=== PATIENT | male | born 1970 | race Caucasian/White ===

== ENCOUNTER 2020-04-13 13:07 | Emergency (ER) | payer OTHER, SELFPAY ==
[2020-04-13] VITALS (19 sets, daily range): BP systolic 104–120; BP diastolic 61–76; PULSE 59–79; RESP 15–24; TEMP 36.7; O2SAT 93–100
--- NOTE | 2020-04-13 13:14 | DI.RAD.S_ITS ---
PROCEDURE: XR CHEST 1V INDICATIONS: chest pain TECHNIQUE: One view of the chest was acquired. COMPARISON: None. FINDINGS: Surgical changes and devices: Left-sided pacer. Lungs and pleura: Lungs are clear. No pleural effusions or pneumothorax. Mediastinum: Mediastinal contours appear normal. Heart size is normal. Bones and chest wall: No suspicious bony lesions. Overlying soft tissues appear unremarkable. IMPRESSION: No acute process. Dictated by: Analilia Temple M.D. on 04/13/2020 at 13:32 Approved by: Analilia Temple M.D. on 04/13/2020 at 13:34
[2020-04-13 13:28] LABS: Add Manual Diff / Slide Review NO; Basophils Absolute Auto 0 /uL (0-100); Basophils Percent Auto 0.4 % (0-2); Eosinophils Absolute Auto 0 /uL (0-450); Eosinophils Percent Auto 0.4 % (2-4); Hematocrit 46.8 % (41-53); Lymphocytes Absolute Auto 1500 /uL (1100-4500); Lymphocytes Percent Auto 26.9 % (25-40); Mean Corpuscular HGB Conc 34.1 % (30-36); Mean Corpuscular Hemoglobin 31.2 PG (26-34); Mean Corpuscular Volume 91.7 fL (80-100); Monocytes Absolute Auto 400 /uL (0-900); Monocytes Percent Auto 6.5 % (3-14); Neutrophils Absolute Auto 3700 /uL (1500-7000); Neutrophils Percent Auto 65.8 % (50-75); Platelet Count 204 X10^3/uL (150-400); Red Blood Cell Count 5.11 X10^6/uL (4.5-5.9); Red Cell Distribution Width 12.9 % (11.6-14.8); White Blood Cell Count 5.6 X10^3/uL (4.5-11.0)
[2020-04-13 13:34] LABS: Prothrombin Time 11.7 SECONDS (10.1-12.7)
[2020-04-13 13:36] LABS: PTT Partial Thromboplastin Tim 29 SECONDS (26.4-36.2)
[2020-04-13 13:38] LABS: Alanine Aminotransferase 52 IU/L (<50); Albumin Globulin Ratio 1.4 (1.0-2.8); Alkaline Phosphatase 53 U/L (38-126); Aspartate Aminotransferase 38 IU/L (17-59); BUN Creatinine Ratio 20.9 (6-22); Bilirubin Total 0.6 mg/dL (0.2-1.3); Blood Urea Nitrogen 18 mg/dL (9-20); Calcium 9.6 mg/dL (8.4-10.2); Carbon Dioxide 28 mmol/L (22-32); Chloride 105 mmol/L (98-107); Creatine Kinase 157 U/L (55-170); Estimated Glomerular Filt Rate > 60.0 mL/min (>60); Globulin 3.5 g/dL (1.7-4.1); Glucose 103 mg/dL (70-100); HEMOLYSIS < 15 (0-50); Lipase 159 U/L (23-300); Sodium 141 mmol/L (137-145); Total Protein 8.5 g/dL (6.3-8.2)
--- NOTE | 2020-04-13 13:38 | ED.CHESTPAIN ---
HPI - Chest Pain General Chief Complaint: Chest Pain Stated Complaint: heart issues Time Seen by Provider: 04/13/20 13:10 Source: patient Mode of arrival: Ambulatory Limitations: no limitations History of Present Illness HPI narrative: 49M nonsmoker with history of persistent atrial flutter with pacemaker and previous ablation, bipolar 1 presents with his and a chief complaint episodes of chest pain rather persistent for the past 3-4 days. He denies much in the way of provocation or palliation. He has had some dizziness and complains of some episodes of palpitations. He denies any radiation of his symptoms. He states the pain is pressure-like. He denies any recent injury. He denies any change with exertion. He has no nausea, vomiting or diarrhea. He denies any unexplained diaphoresis. He had a heart catheterization in December which was unremarkable. MD complaint: chest pain Onset (ago): day(s) Related Data Previous Rx's Medication Instructions Recorded lorazepam [Ativan] 0.5 mg PO BIDP PRN #60 tab 03/14/16 isosorbide mononitrate 30 mg PO DAILY #30 tab 04/13/20 Allergies Allergy/AdvReac Type Severity Reaction Status Date / Time lamotrigine Allergy Intermediate HIVES Verified 04/13/20 13:23 Review of Systems Constitutional Constitutional: Denies chills, Denies fatigue, Denies fever(s), Denies frequent falls, Denies lethargy and Denies weakness Eyes Eyes: Denies change in vision, Denies eye discharge, Denies irritation and Denies loss of vision ENT Ears, Nose, Mouth, and Throat: Denies change in voice, Denies dizziness, Denies neck pain, Denies sore throat and Denies throat swelling Cardiovascular Cardiovascular: Reports chest pain, Denies irregular heart rhythm, Reports lightheadedness, Reports palpitations, Denies dyspnea, Denies dyspnea on exertion and Denies orthopnea Respiratory Respiratory: Denies cough, Denies dyspnea, Denies dyspnea on exertion and Denies wheezing Gastrointestinal Gastrointestinal: Denies abdominal pain, Denies change in bowel habits, Denies diarrhea, Denies nausea and Denies vomiting Musculoskeletal Musculoskeletal: Denies neck pain and Denies numbness Integumentary/Breasts Skin/Breast: Denies pruritus, Denies erythema, Denies rash and Denies wounds Neurologic Neurologic: Denies behavioral changes, Denies confusion, Denies dizziness, Denies frequent falls, Denies loss of vision, Denies numbness and Denies weakness Psychiatric Psychiatric: Denies anxiety, Denies behavioral changes, Denies confusion, Denies depression, Denies homicidal ideation and Denies suicidal ideation Endocrine Endocrine: Denies fatigue, Denies flushing and Reports palpitations Hematologic/Lymphatic Hematologic/Lymphatic: Denies easy bruising Allergic/Immunologic Allergic/Immunologic: Denies urticaria, Denies throat swelling and Denies wheezing Patient History Social History Smoking Status: Never smoker Smoking Status: Never smoker alcohol intake frequency: 0-2 drinks per day Substance Use Type: does not use Exam Narrative Exam Narrative: GENERAL: [49] year old patient appears stated age. Well-nourished, well-developed patient, in mild distress. HEAD: Atraumatic. Normocephalic. EYES: Pupils equal round and reactive. Extraocular motions intact. No scleral icterus. No injection or drainage. ENT: Nose without bleeding, purulent drainage. Throat without erythema, tonsillar hypertrophy or exudate. Airway patent. NECK: Trachea midline. Non tender CARDIOVASCULAR: Regular rate and rhythm without murmurs, gallops, or rubs. RESPIRATORY: Clear to auscultation. Breath sounds equal bilaterally. No wheezes, rales, or rhonchi. GASTROINTESTINAL: Abdomen soft, non-tender, nondistended. EXTREMITIES: No edema or joint tenderness. BACK: Nontender without deformity or crepitance. No flank tenderness. NEURO: AOx3. SKIN: No rash or erythema of visible areas Initial Vital Signs Initial Vital Signs: Vital Signs Temperature 98.1 F 04/13/20 13:10 Pulse Rate 60 04/13/20 13:10 Respiratory Rate 20 04/13/20 13:10 Blood Pressure 120/76 04/13/20 13:10 Pulse Oximetry 100 04/13/20 13:10 Course Orders Ordered: Discontinued Medications Acetaminophen (Tylenol) 975 mg PO NOW ONE Stop: 04/13/20 13:48 Last Admin: 04/13/20 13:53 Dose: 975 mg Documented by: IVÁN Nitroglycerin (Nitrostat) 0.4 mg SL [id number] PRN PRN Reason: Chest Pain Last Admin: 04/13/20 13:42 Dose: 0.4 mg Documented by: IVÁN Reevaluation(s) Reevaluation #1: no change after NG. Currently interrogating pacer. Time: 13:48 Reevaluation #2: patient continues to do well. Asymptomatic Vital Signs Vital signs: Vital Signs - 8 hr 04/13/20 13:10 04/13/20 13:26 04/13/20 13:30 Temperature 98.1 F Pulse Rate 60 60 60 Respiratory Rate 20 23 22 Blood Pressure 120/76 114/73 Pulse Oximetry 100 95 95 04/13/20 13:41 04/13/20 13:42 04/13/20 13:45 Temperature Pulse Rate 60 60 Respiratory Rate 20 20 Blood Pressure 114/74 114/74 104/61 Pulse Oximetry 96 93 04/13/20 13:55 04/13/20 14:00 04/13/20 14:15 Temperature Pulse Rate 60 60 60 Respiratory Rate 22 24 21 Blood Pressure 104/61 108/67 110/74 Pulse Oximetry 99 96 96 04/13/20 14:30 04/13/20 14:50 04/13/20 15:00 Temperature Pulse Rate 60 79 60 Respiratory Rate 17 24 Blood Pressure 110/74 Pulse Oximetry 96 93 95 04/13/20 15:15 04/13/20 15:30 04/13/20 15:45 Temperature Pulse Rate 60 60 60 Respiratory Rate 15 15 20 Blood Pressure Pulse Oximetry 94 94 96 04/13/20 16:00 04/13/20 16:15 04/13/20 16:30 Temperature Pulse Rate 60 59 L 59 L Respiratory Rate 22 19 20 Blood Pressure Pulse Oximetry 95 93 95 04/13/20 16:45 Temperature Pulse Rate 59 L Respiratory Rate 16 Blood Pressure 116/65 Pulse Oximetry 95 MDM - Chest Pain Lab Data Result diagrams: 04/13/20 13:20 04/13/20 13:20 Labs: Lab Results 04/13/20 04/13/20 04/13/20 Range/Units 13:20 13:20 13:20 WBC 5.6 (4.5-11.0) X10^3/uL RBC 5.11 (4.5-5.9) X10^6/uL Hgb 16.0 (13.5-17.5) g/dL Hct 46.8 (41-53) % MCV 91.7 (80-100) fL MCH 31.2 (26-34) PG MCHC 34.1 (30-36) % RDW 12.9 (11.6-14.8) % Plt Count 204 (150-400) X10^3/uL Neut % (Auto) 65.8 (50-75) % Lymph % (Auto) 26.9 (25-40) % Lasalle % (Auto) 6.5 (3-14) % Eos % (Auto) 0.4 L (2-4) % Baso % (Auto) 0.4 (0-2) % Neut # (Auto) 3700 (5904-9388) /uL Lymph # (Auto) 1500 (1172-9911) /uL Lasalle # (Auto) 400 (0-900) /uL Eos # (Auto) 0 (0-450) /uL Baso # (Auto) 0 (0-100) /uL PT 11.7 (10.1-12.7) SECONDS INR 1.0 (0.9-1.3) APTT 29 (26.4-36.2) SECONDS D-Dimer (<230) ng/mL Sodium 141 (137-145) mmol/L Potassium 4.0 (3.4-5.1) mmol/L Chloride 105 (98-107) mmol/L Carbon Dioxide 28 (22-32) mmol/L BUN 18 (9-20) mg/dL Creatinine 0.86 (0.66-1.25) mg/dL Estimated GFR > 60.0 (>60) mL/min BUN/Creatinine Ratio 20.9 (6-22) Glucose 103 H (70-100) mg/dL Calcium 9.6 (8.4-10.2) mg/dL Magnesium 2.0 (1.6-2.3) mg/dL Total Bilirubin 0.6 (0.2-1.3) mg/dL AST 38 (17-59) IU/L ALT 52 H (<50) IU/L Alkaline Phosphatase 53 (38-126) U/L Total Creatine Kinase 157 (55-170) U/L CK-MB (CK-2) 1.09 (<2.37) ng/mL CK-MB (CK-2) Rel Index 0.7 L (1.5-5.0) % Troponin I < 0.012 (0.01-0.034) ng/mL Total Protein 8.5 H (6.3-8.2) g/dL Albumin 5.0 (3.5-5.0) g/dL Globulin 3.5 (1.7-4.1) g/dL Albumin/Globulin Ratio 1.4 (1.0-2.8) Lipase 159 (23-300) U/L // Range/Units 13:49 WBC (4.5-11.0) X10^3/uL RBC (4.5-5.9) X10^6/uL Hgb (13.5-17.5) g/dL Hct (41-53) % MCV (80-100) fL MCH (26-34) PG MCHC (30-36) % RDW (11.6-14.8) % Plt Count (150-400) X10^3/uL Neut % (Auto) (50-75) % Lymph % (Auto) (25-40) % Lasalle % (Auto) (3-14) % Eos % (Auto) (2-4) % Baso % (Auto) (0-2) % Neut # (Auto) (0153-8242) /uL Lymph # (Auto) (6491-5967) /uL Lasalle # (Auto) (0-900) /uL Eos # (Auto) (0-450) /uL Baso # (Auto) (0-100) /uL PT (10.1-12.7) SECONDS INR (0.9-1.3) APTT (26.4-36.2) SECONDS D-Dimer 461 H (<230) ng/mL Sodium (137-145) mmol/L Potassium (3.4-5.1) mmol/L Chloride (98-107) mmol/L Carbon Dioxide (22-32) mmol/L BUN (9-20) mg/dL Creatinine (0.66-1.25) mg/dL Estimated GFR (>60) mL/min BUN/Creatinine Ratio (6-22) Glucose (70-100) mg/dL Calcium (8.4-10.2) mg/dL Magnesium (1.6-2.3) mg/dL Total Bilirubin (0.2-1.3) mg/dL AST (17-59) IU/L ALT (<50) IU/L Alkaline Phosphatase (38-126) U/L Total Creatine Kinase (55-170) U/L CK-MB (CK-2) (<2.37) ng/mL CK-MB (CK-2) Rel Index (1.5-5.0) % Troponin I (0.01-0.034) ng/mL Total Protein (6.3-8.2) g/dL Albumin (3.5-5.0) g/dL Globulin (1.7-4.1) g/dL Albumin/Globulin Ratio (1.0-2.8) Lipase (23-300) U/L Imaging Data CT scan - chest: Radiologist's Impression: 16 Evan Harper DO Find Patient Imaging - Seymour Pickettvitor Colon 49 M 1970 ACTIVITY DATE EXAM STATUS AUTHOR 04/13/20 14:55 Signed [facility] 04/13/20 13:14 [place] [address] CT Scan Report Signed Patient: Raffaele Pickett RMR#: [id number] : 1970Acct:[id number] Age/Sex: 49 / MDate of Service: 04/13/20 Loc: ED Accession Number: [id number] Procedure: CT angio chest PE protocol Ordering Provider: Evan Harper D.O. PROCEDURE: CT ANGIO CHEST PE PROTOCOL INDICATIONS: ongoing pain, pressure, SOB, multiple surgeries, elevated DD TECHNIQUE: After the administration of intravenous contrast, 2 mm thick sections acquired from the pulmonary apices to the posterior costophrenic angles. 3-dimensional maximum intensity projection (MIP) coronal and sagittal reformats were then acquired through the thorax. For radiation dose reduction, the following was used: automated exposure control, adjustment of mA and/or kV according to patient size. COMPARISON: [facility], CR, XR CHEST 1V, 04/13/2020, 13:21. FINDINGS: Image quality: Excellent. Pulmonary arteries: Pulmonary arteries are normal in size, and demonstrate no intraluminal filling defects to suggest central pulmonary embolism. Lungs and pleura: Lungs are clear. No pleural effusions or pneumothorax. Central and peripheral airways are patent. Mediastinum: Heart size is normal, without pericardial effusion. No mediastinal or hilar adenopathy. Thoracic aorta is normal in caliber and enhancement. Esophagus is normal in caliber, without hiatal hernia. Bones and chest wall: Left-sided pacer. No suspicious bony lesions. Ribs and thoracic spine appear intact throughout. Thyroid gland is within normal limits . No axillary or supraclavicular adenopathy. Abdomen: Visualized upper abdominal solid organs appear normal in the early arterial phase of enhancement. IMPRESSION: No acute process. No pulmonary embolus. Dictated by: Analilia Temple M.D. on 04/13/2020 at 15:00 Approved by: Analilia Temple M.D. on 04/13/2020 at 15:02 [facility] Narrative Medical decision making narrative: 49M with multiple days of Chest Pressure. Non ischemic EKGs and troponin unremarkable. Pacer interrogation showed one episode of tachycardia a few days ago otherwise well. Unlikely to be ischemic in nature given Discharge Plan Departure Patient Disposition: Home Clinical Impression: Chest pain Qualifiers: Chest pain type: unspecified Qualified Code(s): R07.9 - Chest pain, unspecified Discharge Date/Time: 04/13/20 16:56 Instructions: DI for Chest Pain Activity Restrictions/Additional Instructions: *You have been diagnosed with [chest pain. Your pacemaker is working fine. Your blood work and CT scan are very reassuring.] *What to do: *Take medications as directed: I spoke with on-call melter supervisor oxygen furnace who wanted me to start to on this long-acting version of nitro to help with your pain. *Follow up with your primary care provider in 2-3 days, call for an appointment. Let them know you were seen in the Emergency Department and that we ask that you be seen in follow up *Return to ER if you should have any new, worsening or concerning symptoms Prescriptions: New isosorbide mononitrate 30 mg tablet extended release 24 hr 30 mg PO DAILY Qty: 30 RF: 0 No Action lorazepam [Ativan] 0.5 MG tablet 0.5 mg PO BIDP PRNQty: 60 RF: 5 Referrals: Marvin Wyatt MD [Primary Care Provider] -
[2020-04-13] MEDS: NITROGLYCERIN 0.4 MG SL TAB SL (13:42)
[2020-04-13 13:49] LABS: Troponin I < 0.012 ng/mL (0.01-0.034)
[2020-04-13 13:53] LABS: CKMB % Relative Index 0.7 % (1.5-5.0); Creatine Kinase MB 1.09 ng/mL (<2.37)
[2020-04-13] MEDS: ACETAMINOPHEN 325 MG TABLET 975 MG PO (13:53)
[2020-04-13 14:05] LABS: D Dimer 461 ng/mL (<230)
--- NOTE | 2020-04-13 14:55 | DI.CT.S_ITS ---
PROCEDURE: CT ANGIO CHEST PE PROTOCOL INDICATIONS: ongoing pain, pressure, SOB, multiple surgeries, elevated DD TECHNIQUE: After the administration of intravenous contrast, 2 mm thick sections acquired from the pulmonary apices to the posterior costophrenic angles. 3-dimensional maximum intensity projection (MIP) coronal and sagittal reformats were then acquired through the thorax. For radiation dose reduction, the following was used: automated exposure control, adjustment of mA and/or kV according to patient size. COMPARISON: [facility], CR, XR CHEST 1V, 04/13/2020, 13:21. FINDINGS: Image quality: Excellent. Pulmonary arteries: Pulmonary arteries are normal in size, and demonstrate no intraluminal filling defects to suggest central pulmonary embolism. Lungs and pleura: Lungs are clear. No pleural effusions or pneumothorax. Central and peripheral airways are patent. Mediastinum: Heart size is normal, without pericardial effusion. No mediastinal or hilar adenopathy. Thoracic aorta is normal in caliber and enhancement. Esophagus is normal in caliber, without hiatal hernia. Bones and chest wall: Left-sided pacer. No suspicious bony lesions. Ribs and thoracic spine appear intact throughout. Thyroid gland is within normal limits . No axillary or supraclavicular adenopathy. Abdomen: Visualized upper abdominal solid organs appear normal in the early arterial phase of enhancement. IMPRESSION: No acute process. No pulmonary embolus. Dictated by: Analilia Temple M.D. on 04/13/2020 at 15:00 Approved by: Analilia Temple M.D. on 04/13/2020 at 15:02
== END 2020-04-13 16:56 | disposition home or self-care (01) ==
PROVIDERS: Emergency Provider Emergency Medicine; PCP Internal Medicine
DX: R07.9 Chest pain, unspecified (principal); I48.92 Unspecified atrial flutter; Z95.0 Presence of cardiac pacemaker
CPT/HCPCS: 36415; 71045; 71275; 80053; 82550; 82553; 83690; 83735; 84484; 85025; 85379; 85610; 85730; 93005; 93010; 99284; Q9967

== ENCOUNTER → 2020-07-11 12:55 | Outpatient (CLI) | payer OTHER, SELFPAY ==
[2020-07-11 13:47] LABS: COVID19 -Nasal RAPID Negative (Negative)
== END ==
PROVIDERS: PCP Internal Medicine; Visit Provider Physician Assistant
DX: R05 Cough (principal); Z20.822 Contact with and (suspected) exposure to COVID-19
CPT/HCPCS: 87635

== ENCOUNTER 2021-01-16 03:09 | Emergency (ER) | payer OTHER, SELFPAY ==
[2021-01-16] VITALS (13 sets, daily range): BP systolic 101–122; BP diastolic 56–75; PULSE 59–69; RESP 15–23; TEMP 36.9; O2SAT 92–98; BMI 32.3
--- NOTE | 2021-01-16 03:33 | DI.CT.S_ITS ---
PROCEDURE: CT ANGIO CHEST ABDOMEN PELVIS INDICATIONS: ? ascending aortic dissection TECHNIQUE: Precontrast 5 mm thick sections acquired from the lung apices to the iliac crests. After the administration of intravenous contrast, 2.5 mm thick sections again acquired from the lung apices to the iliac crests. Maximum intensity projection (MIP) oblique sagittal and coronal reformats were then acquired. For radiation dose reduction, the following was used: automated exposure control. COMPARISON: Located [facility], CT, CT ANGIO CHEST PE PROTOCOL, 04/13/2020, 14:44. FINDINGS: Image quality: Excellent. AORTA: The thoracoabdominal aorta is within normal limits. No evidence of dissection, aneurysm, or significant stenosis. CHEST: Lungs and pleura: No acute airspace opacities. No pleural effusions or pneumothorax. Central and peripheral airways are patent and normal in caliber. Mediastinum: Heart size is normal. No pericardial effusion. No mediastinal or hilar adenopathy by size criteria. Central pulmonary arteries are normal in size. Esophagus is normal in caliber. No hiatal hernias. Bones and chest wall: Left-sided pacer. No axillary adenopathy by size criteria. Thyroid gland is grossly unremarkable . No suspicious bony lesions. No vertebral body compression fractures. ABDOMEN: Vasculature: Celiac trunk and mesenteric arteries are patent. Renal arteries are also patent. Solid organs: Liver is normal in size and enhancement. Gallbladder is grossly unremarkable . Biliary system is non dilated. Pancreas enhances normally. Spleen is normal in size and enhancement. No adrenal nodules. Both kidneys are normal in size and enhancement, without hydronephrosis. Peritoneum and bowel: No free fluid or air. Bowel loops are normal in caliber and wall thickness. Normal appendix. Nodes and vessels: No retroperitoneal or mesenteric adenopathy by size criteria. Inferior vena cava is normal in morphology. Miscellaneous: 30 mm fat containing umbilical hernia. PELVIS: Genitourinary: Bladder wall thickness is normal. Miscellaneous: No inguinal hernias or adenopathy. No ventral hernias. Bones: No suspicious bony lesions. No vertebral body compression fractures. IMPRESSION: 1. No evidence of aortic dissection. 2. Normal appendix. 3. Concordant with preliminary interpretation. Dictated by: Analilia Temple M.D. on 01/16/2021 at 8:00 Approved by: Analilia Temple M.D. on 01/16/2021 at 8:03
--- NOTE | 2021-01-16 03:38 | ED.GENADULT ---
HPI - General Adult <Lana Garza MD - Last Filed: 01/16/21 07:33> General Chief complaint: Neck Pain/Injury Stated complaint: severe right shoulder pain.numbness Time Seen by Provider: 01/16/21 03:09 History of Present Illness HPI narrative: 50-year-old gentleman with history of hypertension, sick sinus syndrome and atrial flutter for which he has had a cardiac ablation and now has a pacemaker presents with acute onset of severe neck pain radiating down to the right arm with increasing numbness distally in a glove-like distribution on the right side. He was asleep when symptoms initially started. Does not describe any recent falls or trauma, he was not sleeping at an odd angle. As they were driving into the emergency room he noticed about 1 minute of numbness in a band like distribution around the middle of his right foot, toes and heel retain full sensation. He complains of no chest pain, palpitations he is mildly dyspneic secondary to pain. He notes that today he smoked a small amount of marijuana had a couple of drinks denies any stimulant use specifically, no methamphetamine and no cocaine. He describes no headache and is alert and able to give a complete coherent history. He has not had any recent fevers, cough, cold, chills, nausea vomiting or diarrhea. Related Data Previous Rx's Medication Instructions Recorded lorazepam 0.5 mg tablet (Ativan) 0.5 mg PO BIDP PRN #60 tab 03/14/16 isosorbide mononitrate 30 mg 30 mg PO DAILY #30 tab 04/13/20 tablet,extended release 24 hr albuterol sulfate 90 mcg/actuation 1 inh INHALATION Q4-6H PRN #18 g 07/11/20 aerosol inhaler benzonatate 100 mg capsule 100 mg PO BEDTIME #20 cap 07/11/20 dexamethasone 4 mg tablet 8 mg PO DAILY #4 tab 01/16/21 (Decadron) diazepam 5 mg tablet 5 mg PO BID PRN #10 tab 01/16/21 oxycodone-acetaminophen 5 mg-325 1 tab PO Q6H PRN #14 tab 01/16/21 mg tablet Allergies Allergy/AdvReac Type Severity Reaction Status Date / Time lamotrigine Allergy Intermediate HIVES Verified 07/11/20 13:11 Review of Systems <Lana Garza MD - Last Filed: 01/16/21 07:33> Review of Systems Narrative: Remainder of complete review of systems is otherwise unremarkable except for that included in the HPI. Patient History <Lana Garza MD - Last Filed: 01/16/21 07:33> Medical History (Updated 01/16/21 @ 07:24 by Lana Garza MD) Atrial flutter Bipolar 1 disorder, manic, full remission Hypertension Hypothyroidism (acquired) Obesity (BMI 35.0-39.9 without comorbidity) Psoriasis Social History Smoking Status: Never smoker Smoking Status: Never smoker alcohol intake frequency: 0-2 drinks per day Substance Use Type: does not use Exam <Lana Garza MD - Last Filed: 01/16/21 07:33> Narrative Exam Narrative: General: Slightly flushed ( says this is his typical coloring) in obvious pain, Able to give a complete and coherent history. Well-nourished well-developed HEENT: Moist mucous membranes, normal sclera with reactive pupils, Neck: No JVD, supple. Tender along the cervical spine right greater than left. Tender in to the trapezius muscles but this does not specifically exacerbate his pain Respiratory: Lungs are clear to auscultation, no wheezing no rales no rhonchi. Full and symmetrical air movement Cardiac: Regular rate and rhythm no murmurs no bruits. Palpable radial pulses bilaterally. Blood pressure right-sided 101/56, left side 122/65 Abdomen: Soft, nontender, good bowel tones, no flank pain Skin: Warm and dry, no rashes Neurologic: Decreased sensation to fingertips and increasing sensation proximally. Full motor control of hand including fine motor control. No other neurologic complaints Extremities: No trauma, well perfused Psych: Cooperative, appropriate insight and affect Initial Vital Signs Initial Vital Signs: Vital Signs Blood Pressure 101/56 L 01/16/21 03:40 <Raquel Cintron DO - Last Filed: 01/16/21 19:31> Initial Vital Signs Initial Vital Signs: Vital Signs Blood Pressure 101/56 L 01/16/21 03:40 Course <Lana Garza MD - Last Filed: 01/16/21 07:33> Orders Ordered: Discontinued Medications Dexamethasone (Dexamethasone 10 Mg/Ml Vial) 10 mg IV NOW ONE Stop: 01/16/21 07:19 Last Admin: 01/16/21 08:29 Dose: 10 mg Documented by: MAYRA Hydromorphone HCl (Hydromorphone 0.5 Mg Inj) 0.5 mg IV Q15MIN PRN PRN Reason: Pain, Last Admin: 01/16/21 05:23 Dose: 0.5 mg Documented by: Admin: 01/16/21 03:57 Dose: 0.5 mg Documented by: ANA LAURA Admin: 01/16/21 03:40 Dose: 0.5 mg Documented by: ANA LAURA Oxycodone/Acetaminophen (Oxycodone/Acetaminophen 5/325 Tablet) 2 tab PO NOW ONE Stop: 01/16/21 07:19 Last Admin: 01/16/21 08:29 Dose: 2 tab Documented by: MAYRA Vital Signs Vital signs: Vital Signs - 8 hr 01/16/21 03:40 01/16/21 03:43 01/16/21 03:53 Temperature 98.4 F Pulse Rate 60 60 Respiratory Rate 22 23 Blood Pressure 101/56 L 122/75 Pulse Oximetry 98 96 01/16/21 04:00 01/16/21 04:30 01/16/21 05:07 Temperature Pulse Rate 60 60 60 Respiratory Rate 20 19 Blood Pressure 114/67 111/63 Pulse Oximetry 94 93 97 01/16/21 05:30 01/16/21 06:00 01/16/21 06:30 Temperature Pulse Rate 59 L 60 60 Respiratory Rate 17 18 19 Blood Pressure Pulse Oximetry 93 92 93 <Raquel Cintron DO - Last Filed: 01/16/21 19:31> Orders Ordered: Discontinued Medications Dexamethasone (Dexamethasone 10 Mg/Ml Vial) 10 mg IV NOW ONE Stop: 01/16/21 07:19 Last Admin: 01/16/21 08:29 Dose: 10 mg Documented by: MAYRA Hydromorphone HCl (Hydromorphone 0.5 Mg Inj) 0.5 mg IV Q15MIN PRN PRN Reason: Pain, Last Admin: 01/16/21 05:23 Dose: 0.5 mg Documented by: Admin: 01/16/21 03:57 Dose: 0.5 mg Documented by: ANA LAURA Admin: 01/16/21 03:40 Dose: 0.5 mg Documented by: ANA LAURA Oxycodone/Acetaminophen (Oxycodone/Acetaminophen 5/325 Tablet) 2 tab PO NOW ONE Stop: 01/16/21 07:19 Last Admin: 01/16/21 08:29 Dose: 2 tab Documented by: MAYRA Vital Signs Vital signs: Vital Signs - 8 hr 01/16/21 03:40 01/16/21 03:43 01/16/21 03:53 Temperature 98.4 F Pulse Rate 60 60 Respiratory Rate 22 23 Blood Pressure 101/56 L 122/75 Pulse Oximetry 98 96 01/16/21 04:00 01/16/21 04:30 01/16/21 05:07 Temperature Pulse Rate 60 60 60 Respiratory Rate 20 19 Blood Pressure 114/67 111/63 Pulse Oximetry 94 93 97 01/16/21 05:30 01/16/21 06:00 01/16/21 06:30 Temperature Pulse Rate 59 L 60 60 Respiratory Rate 17 18 19 Blood Pressure Pulse Oximetry 93 92 93 Medical Decision Making <Lana Garza MD - Last Filed: 01/16/21 07:33> Lab Data Result diagrams: 01/16/21 03:30 01/16/21 03:30 Labs: Lab Results 01/16/21 01/16/21 01/16/21 Range/Units 03:30 03:30 03:42 WBC 5.6 (4.5-11.0) X10^3/uL RBC 4.67 (4.5-5.9) X10^6/uL Hgb 14.5 (13.5-17.5) g/dL Hct 43.4 (41-53) % MCV 92.8 (80-100) fL MCH 31.0 (26-34) PG MCHC 33.3 (30-36) % RDW 14.3 (11.6-14.8) % Plt Count 212 (150-400) X10^3/uL Neut % (Auto) 47.4 L (50-75) % Lymph % (Auto) 44.5 H (25-40) % [place] % (Auto) 6.8 (3-14) % Eos % (Auto) 1.1 L (2-4) % Baso % (Auto) 0.2 (0-2) % Neut # (Auto) 2600 (0347-8285) /uL Lymph # (Auto) 2500 (4541-6957) /uL [place] # (Auto) 400 (0-900) /uL Eos # (Auto) 100 (0-450) /uL Baso # (Auto) 0 (0-100) /uL Sodium 141 (137-145) mmol/L Potassium 4.3 (3.4-5.1) mmol/L Chloride 106 (98-107) mmol/L Carbon Dioxide 22 (22-32) mmol/L BUN 15 (9-20) mg/dL Creatinine 0.91 (0.66-1.25) mg/dL Estimated GFR > 60.0 (>60) mL/min BUN/Creatinine Ratio 16.5 (6-22) Glucose 97 (70-100) mg/dL Calcium 9.5 (8.4-10.2) mg/dL Magnesium 1.7 (1.6-2.3) mg/dL Total Bilirubin 0.4 (0.2-1.3) mg/dL AST 45 (17-59) IU/L ALT 40 (<50) IU/L Alkaline Phosphatase 55 (38-126) U/L Troponin I < 0.012 (0.01-0.034) ng/mL Total Protein 7.8 (6.3-8.2) g/dL Albumin 4.7 (3.5-5.0) g/dL Globulin 3.1 (1.7-4.1) g/dL Albumin/Globulin Ratio 1.5 (1.0-2.8) Lipase 128 (23-300) U/L Ethyl Alcohol 109 H ( - 10) mg/dL SARS-CoV-2 (PCR) Negative (Negative) 01/16/21 Range/Units 05:30 WBC (4.5-11.0) X10^3/uL RBC (4.5-5.9) X10^6/uL Hgb (13.5-17.5) g/dL Hct (41-53) % MCV (80-100) fL MCH (26-34) PG MCHC (30-36) % RDW (11.6-14.8) % Plt Count (150-400) X10^3/uL Neut % (Auto) (50-75) % Lymph % (Auto) (25-40) % [place] % (Auto) (3-14) % Eos % (Auto) (2-4) % Baso % (Auto) (0-2) % Neut # (Auto) (0300-7939) /uL Lymph # (Auto) (1997-9038) /uL [place] # (Auto) (0-900) /uL Eos # (Auto) (0-450) /uL Baso # (Auto) (0-100) /uL Sodium (137-145) mmol/L Potassium (3.4-5.1) mmol/L Chloride (98-107) mmol/L Carbon Dioxide (22-32) mmol/L BUN (9-20) mg/dL Creatinine (0.66-1.25) mg/dL Estimated GFR (>60) mL/min BUN/Creatinine Ratio (6-22) Glucose (70-100) mg/dL Calcium (8.4-10.2) mg/dL Magnesium (1.6-2.3) mg/dL Total Bilirubin (0.2-1.3) mg/dL AST (17-59) IU/L ALT (<50) IU/L Alkaline Phosphatase (38-126) U/L Troponin I < 0.012 (0.01-0.034) ng/mL Total Protein (6.3-8.2) g/dL Albumin (3.5-5.0) g/dL Globulin (1.7-4.1) g/dL Albumin/Globulin Ratio (1.0-2.8) Lipase (23-300) U/L Ethyl Alcohol ( - 10) mg/dL SARS-CoV-2 (PCR) (Negative) Imaging Data CTA chest abd pelvis: Radiologist's Impression: Impression: No aortic aneurysm, dissection or acute vascular pathology Higinio Dixon MD ECG Data Interpretation: Atrial paced rhythm at a rate of 60 No ischemic changes MDM Narrative Medical decision making narrative: 50-year-old gentleman who presents with an and interesting constellation of physiologic symptoms that do not seem consistent with a stroke. He has severe pain from the right side of his neck radiating down his right arm and describes a numbness that becomes more dense the more distal it goes with the finger tips being most numb. He also describes a completely non physiologic numbness like a band around his midfoot on the right the lasted for only a minute. He describes his right arm as feeling heavy your than the left but motor strength is similar bilaterally he has no weakness in the lower extremities. There is no facial weakness or asymmetries. He is having less pain after a dose of IV Dilaudid. Labs do not suggest acute infection or metabolic abnormalities. Alcohol level is slightly elevated at just over 100. He does have slightly asymmetric blood pressures between the right and left arms on initial presentation. Given the severity of his pain the possibility of dissection is entertained and a CTA is obtained. There is no evidence of acute coronary syndrome. The pain radiating from his neck seems to be musculoskeletal with no point or bony tenderness along the cervical spine. 7am On re-evaluation pain medication has been moderately effective he still has significant radicular pain however the numbness in the hand is not quite as severe. CTA of the chest abdomen and pelvis does not show any type of dissection. There is no evidence of acute coronary syndrome, pneumonia, pneumothorax or clinical evidence of stroke at this point. Most likely explanation is acute radicular cervical spine pain. Uncertain why this would awaken from sleep without prior injuries however he did have a couple drinks last night and he may have done something that he did not recognize at the time. Will have him complete 3 days of Decadron, 1st dose is given IV today Will give him a brief course of Percocet to help with acute pain. Suspect that this will be most helpful in the 1st 2 days. He will be given a prescription for diazepam for direct muscle relaxation to the trapezius and paraspinous muscle spasm. Clearly reviewed the importance of not combining Valium and Percocet with both he and his . Also included alcohol in that combination that needed to be avoided Will have him follow-up with his primary care physician to see if he is improving and if not begin referrals for consideration of MRI and neurosurgical follow-up He is given a soft collar for symptomatic relief of his neck pain He is safe for home discharge <Raquel Cintron, - Last Filed: 01/16/21 19:31> Lab Data Labs: Lab Results 01/16/21 01/16/21 01/16/21 Range/Units 03:30 03:30 03:42 WBC 5.6 (4.5-11.0) X10^3/uL RBC 4.67 (4.5-5.9) X10^6/uL Hgb 14.5 (13.5-17.5) g/dL Hct 43.4 (41-53) % MCV 92.8 (80-100) fL MCH 31.0 (26-34) PG MCHC 33.3 (30-36) % RDW 14.3 (11.6-14.8) % Plt Count 212 (150-400) X10^3/uL Neut % (Auto) 47.4 L (50-75) % Lymph % (Auto) 44.5 H (25-40) % [place] % (Auto) 6.8 (3-14) % Eos % (Auto) 1.1 L (2-4) % Baso % (Auto) 0.2 (0-2) % Neut # (Auto) 2600 (2735-1823) /uL Lymph # (Auto) 2500 (2362-7481) /uL [place] # (Auto) 400 (0-900) /uL Eos # (Auto) 100 (0-450) /uL Baso # (Auto) 0 (0-100) /uL Sodium 141 (137-145) mmol/L Potassium 4.3 (3.4-5.1) mmol/L Chloride 106 (98-107) mmol/L Carbon Dioxide 22 (22-32) mmol/L BUN 15 (9-20) mg/dL Creatinine 0.91 (0.66-1.25) mg/dL Estimated GFR > 60.0 (>60) mL/min BUN/Creatinine Ratio 16.5 (6-22) Glucose 97 (70-100) mg/dL Calcium 9.5 (8.4-10.2) mg/dL Magnesium 1.7 (1.6-2.3) mg/dL Total Bilirubin 0.4 (0.2-1.3) mg/dL AST 45 (17-59) IU/L ALT 40 (<50) IU/L Alkaline Phosphatase 55 (38-126) U/L Troponin I < 0.012 (0.01-0.034) ng/mL Total Protein 7.8 (6.3-8.2) g/dL Albumin 4.7 (3.5-5.0) g/dL Globulin 3.1 (1.7-4.1) g/dL Albumin/Globulin Ratio 1.5 (1.0-2.8) Lipase 128 (23-300) U/L Ethyl Alcohol 109 H ( - 10) mg/dL SARS-CoV-2 (PCR) Negative (Negative) 01/16/21 Range/Units 05:30 WBC (4.5-11.0) X10^3/uL RBC (4.5-5.9) X10^6/uL Hgb (13.5-17.5) g/dL Hct (41-53) % MCV (80-100) fL MCH (26-34) PG MCHC (30-36) % RDW (11.6-14.8) % Plt Count (150-400) X10^3/uL Neut % (Auto) (50-75) % Lymph % (Auto) (25-40) % [place] % (Auto) (3-14) % Eos % (Auto) (2-4) % Baso % (Auto) (0-2) % Neut # (Auto) (9555-0656) /uL Lymph # (Auto) (0920-8926) /uL [place] # (Auto) (0-900) /uL Eos # (Auto) (0-450) /uL Baso # (Auto) (0-100) /uL Sodium (137-145) mmol/L Potassium (3.4-5.1) mmol/L Chloride (98-107) mmol/L Carbon Dioxide (22-32) mmol/L BUN (9-20) mg/dL Creatinine (0.66-1.25) mg/dL Estimated GFR (>60) mL/min BUN/Creatinine Ratio (6-22) Glucose (70-100) mg/dL Calcium (8.4-10.2) mg/dL Magnesium (1.6-2.3) mg/dL Total Bilirubin (0.2-1.3) mg/dL AST (17-59) IU/L ALT (<50) IU/L Alkaline Phosphatase (38-126) U/L Troponin I < 0.012 (0.01-0.034) ng/mL Total Protein (6.3-8.2) g/dL Albumin (3.5-5.0) g/dL Globulin (1.7-4.1) g/dL Albumin/Globulin Ratio (1.0-2.8) Lipase (23-300) U/L Ethyl Alcohol ( - 10) mg/dL SARS-CoV-2 (PCR) (Negative) Discharge Plan Departure Patient Disposition: Home Clinical Impression: Cervical radiculopathy Instructions: DI for Neck Pain Activity Restrictions/Additional Instructions: Thank you for coming in today With your workup I found no evidence of stroke, heart attack or acute coronary syndrome, vascular dissection or other life-threatening etiology. I suspect that this severe pain radiating down your arm is due to a pinched nerve in your neck, a cervical radiculopathy. In the emergency department you are given Decadron as an anti-inflammatory. Please take 8 mg of Decadron on January 17 and January 18 for continued anti-inflammatory benefits. This prescription was electronically transmitted to [facility] Use the soft cervical collar for comfort and pain relief. Ice may also be helpful For severe pain you can use 1-2 Percocet For severe muscle spasm you can use 5 mg of Valium/diazepam. You need to take care to not mix Percocet, Valium or alcohol. Need to choose 1 medication only and keep at least 6 hours between medications. Combinations of these medications can cause you to stop breathing and . If you have new or worsening symptoms please return to the emergency department Prescriptions: New oxycodone-acetaminophen 5-325 mg tablet 1 tab PO Q6H PRN (Reason: pain) Qty: 14 RF: 0 diazepam 5 mg tablet 5 mg PO BID PRN (Reason: muscle spasm) Qty: 10 RF: 0 dexamethasone [Decadron] 4 mg tablet 8 mg PO DAILY Qty: 4 RF: 0 No Action albuterol sulfate 90 mcg/actuation HFA aerosol inhaler 1 inh inhalation Q4-6H PRN (Reason: shortness of breath) Qty: 18 RF: 0 benzonatate 100 mg capsule 100 mg PO BEDTIME Qty: 20 RF: 0 lorazepam [Ativan] 0.5 MG tablet 0.5 mg PO BIDP PRNQty: 60 RF: 5 isosorbide mononitrate 30 mg tablet extended release 24 hr 30 mg PO DAILY Qty: 30 RF: 0 Referrals: Marvin Wyatt MD [Primary Care Provider] - <Raquel Cintron DO - Last Filed: 01/16/21 19:31> Cosign ED Attending Cosignature Attestation: Patient was not seen by myself in the department and accidentally assigned to my chart list.
[2021-01-16] MEDS: HYDROMORPHONE 0.5 MG INJ IV ×3 (03:40→05:23)
--- NOTE | 2021-01-16 03:47 | PC.NURSE ---
Patient reports sudden onset of right neck/shoulder pain and R arm numbness beginning about 2 hours previous to presentation at ED.
--- NOTE | 2021-01-16 03:49 | PC.NURSE ---
Checked RUE vs LUE sbp: 101/56 in RUE, 125/68 in LUE.
[2021-01-16 03:50] LABS: Add Manual Diff / Slide Review NO; Basophils Absolute Auto 0 /uL (0-100); Basophils Percent Auto 0.2 % (0-2); Eosinophils Absolute Auto 100 /uL (0-450); Eosinophils Percent Auto 1.1 % (2-4); Hematocrit 43.4 % (41-53); Hemoglobin 14.5 g/dL (13.5-17.5); Lymphocytes Absolute Auto 2500 /uL (1100-4500); Lymphocytes Percent Auto 44.5 % (25-40); Mean Corpuscular HGB Conc 33.3 % (30-36); Mean Corpuscular Volume 92.8 fL (80-100); Monocytes Absolute Auto 400 /uL (0-900); Monocytes Percent Auto 6.8 % (3-14); Neutrophils Absolute Auto 2600 /uL (1500-7000); Neutrophils Percent Auto 47.4 % (50-75); Platelet Count 212 X10^3/uL (150-400); Red Blood Cell Count 4.67 X10^6/uL (4.5-5.9); Red Cell Distribution Width 14.3 % (11.6-14.8); White Blood Cell Count 5.6 X10^3/uL (4.5-11.0)
[2021-01-16 03:51] LABS: Alanine Aminotransferase 40 IU/L (<50); Albumin 4.7 g/dL (3.5-5.0); Albumin Globulin Ratio 1.5 (1.0-2.8); Alkaline Phosphatase 55 U/L (38-126); Aspartate Aminotransferase 45 IU/L (17-59); BUN Creatinine Ratio 16.5 (6-22); Bilirubin Total 0.4 mg/dL (0.2-1.3); Blood Urea Nitrogen 15 mg/dL (9-20); Calcium 9.5 mg/dL (8.4-10.2); Carbon Dioxide 22 mmol/L (22-32); Chloride 106 mmol/L (98-107); Estimated Glomerular Filt Rate > 60.0 mL/min (>60); Globulin 3.1 g/dL (1.7-4.1); Glucose 97 mg/dL (70-100); HEMOLYSIS 30 (0-50); Lipase 128 U/L (23-300); Magnesium 1.7 mg/dL (1.6-2.3); Potassium 4.3 mmol/L (3.4-5.1); Sodium 141 mmol/L (137-145); Total Protein 7.8 g/dL (6.3-8.2)
[2021-01-16 04:03] LABS: Troponin I < 0.012 ng/mL (0.01-0.034)
[2021-01-16 04:10] LABS: Ethanol (ETOH) 109 mg/dL
[2021-01-16 04:44] LABS: COVID19 - ADMIT (NP swab/PCR) Negative (Negative)
[2021-01-16 06:03] LABS: Troponin I < 0.012 ng/mL (0.01-0.034)
[2021-01-16] MEDS: DEXAMETHASONE 10 MG/ML VIAL IV (08:29)
[2021-01-16] MEDS: OXYCODONE/ACETAMINOPHEN 5/325 TABLET 2 TAB PO (08:29)
== END 2021-01-16 08:40 | disposition home or self-care (01) ==
PROVIDERS: Emergency Provider Emergency Medicine; PCP Internal Medicine
DX: M54.12 Radiculopathy, cervical region (principal); R20.0 Anesthesia of skin; M62.830 Muscle spasm of back; Z20.822 Contact with and (suspected) exposure to COVID-19; R06.00 Dyspnea, unspecified
CPT/HCPCS: 36415; 71275; 74174; 80053; 80320; 83690; 83735; 84484; 85025; 87635; 93005; 96374; 96375; 96376; 99284; C9803; J1100; J1170; Q9967

== ENCOUNTER 2024-05-15 22:53 | Emergency (ER) | payer OTHER, SELFPAY ==
--- NOTE | 2024-05-15 22:54 | DI.CT.S_ITS ---
PROCEDURE: CT CERVICAL SPINE WO CON INDICATIONS: fall on blood thinners TECHNIQUE: Noncontrast 3 mm thick sections acquired from the skull base to the T4 level. Sagittal and coronal reformats were then constructed. For radiation dose reduction, the following was used: automated exposure control, adjustment of mA and/or kV according to patient size. COMPARISON: None. FINDINGS: Image quality: Prominent motion was present throughout the exam limiting evaluation. Bones: No gross fractures or dislocations. Significant motion is present particularly at the level of C5-6. This area is incompletely evaluated secondary to motion. Soft tissues: Prevertebral soft tissues are normal in thickness. No paravertebral hematomas. No apical pneumothoraces. IMPRESSION: No gross fracture. However, motion is present throughout the exam limiting areas of evaluation. The levels of C5-6 are felt to be inadequately evaluated and fracture wall not grossly visible cannot be excluded. As clinically indicated, repeat images through this level is recommended. Dictated by: Dolly Zurita M.D. on 05/16/2024 at 0:05 Approved by: Dolly Zurita M.D. on 05/16/2024 at 0:09
--- NOTE | 2024-05-15 22:54 | DI.CT.S_ITS ---
PROCEDURE: CT FACIAL BONES WO CON INDICATIONS: fall on blood thinners TECHNIQUE: Noncontrast 2.5 mm thick axial images acquired from the mandible through the frontal sinuses, with coronal and sagittal reformatting. For radiation dose reduction, the following was used: automated exposure control, adjustment of mA and/or kV according to patient size. COMPARISON: None. FINDINGS: Image quality: Excellent. Bones and teeth: Orbital smith are intact. Sinus smith show no fracture or deformity. Nasal bones and septum are intact. Visualized portions of the mandible demonstrate no fractures or subluxation. Zygomatic arches are intact. Pterygoid plates are intact. Visualized portions of the skull base and auditory canals are intact. Sinuses: Paranasal sinuses demonstrate mild scattered areas of mucosal thickening.. Mastoid air cells are aerated. Soft tissues: No edema, masses, or fluid collections. No enlarged lymph nodes. No soft tissue lacerations or debris. Vascular: Visualized vascular structures appear normal in the absence of contrast. Bony vascular foramina and canals are intact. IMPRESSION: No visualized fracture. Dictated by: Dolly Zurita M.D. on 05/16/2024 at 0:09 Approved by: Dolly Zurita M.D. on 05/16/2024 at 0:13
--- NOTE | 2024-05-15 22:54 | DI.CT.S_ITS ---
PROCEDURE: CT HEAD/BRAIN WO CON INDICATIONS: Fallen on blood thinners TECHNIQUE: Noncontrast 4.5 mm thick angled axial sections acquired from the foramen magnum to the vertex, with coronal and sagittal reformats. For radiation dose reduction, the following was used: automated exposure control, adjustment of mA and/or kV according to patient size. COMPARISON: [facility], CT, CT ANGIO HEAD AND NECK, 01/28/2022, 17:28. FINDINGS: Image quality: Diagnostic. CSF spaces: Basal cisterns are patent. No extra-axial fluid collections. Ventricles are normal in size and shape. Brain: No midline shift. No intracranial masses or hemorrhage. Grere-white matter interface is normal. Skull and face: Calvarium and visualized facial bones are intact, without suspicious lesions. Sinuses: Visualized sinuses demonstrate scattered mild mucosal thickening. IMPRESSION: No acute intracranial pathology. Dictated by: Dolly Zurita M.D. on 05/16/2024 at 0:04 Approved by: Dolly Zurita M.D. on 05/16/2024 at 0:04
[2024-05-15 22:55] VITALS: BP 132/88; PULSE 90; O2SAT 96
[2024-05-15 22:56] VITALS: BP 132/88; PULSE 91; RESP 18; TEMP 36.6; O2SAT 96; BMI 30.8
[2024-05-15 23:00] VITALS: BP 133/85; PULSE 92; RESP 19; O2SAT 97
[2024-05-15 23:02] VITALS: BP 131/81; PULSE 89; RESP 20; O2SAT 97
--- NOTE | 2024-05-15 23:09 | PC.NURSE ---
at bedside. Pt now to CT
--- NOTE | 2024-05-15 23:15 | DI.RAD.S_ITS ---
PROCEDURE: XR LUMBAR SPINE 2-3V INDICATIONS: lower back pain after fall TECHNIQUE: 3 views of the lumbar spine were acquired. COMPARISON: None. FINDINGS: Bones: 5 [id number] vertebrae are present. There is normal bony alignment. No vertebral body compression fractures. No suspicious bony lesions. Soft tissues: Overlying bowel gas pattern is normal. No suspicious soft tissue calcifications. IMPRESSION: No visualized acute fracture or dislocation. However, if clinical concern and/or pain persist, short interval imaging followup in 7-10 days is recommended, as occult injury cannot be definitively excluded. Dictated by: Dolly Zurita M.D. on 05/16/2024 at 0:03 Approved by: Dolly Zurita M.D. on 05/16/2024 at 0:04
[2024-05-15 23:33] VITALS: PULSE 91; O2SAT 95
[2024-05-15 23:35] VITALS: BP 159/84; PULSE 89; RESP 14; O2SAT 96
--- NOTE | 2024-05-15 23:37 | PC.NURSE ---
While on CT table, pt began to c/o R lower back pain. Moving lower extremities equally. Dr Lucero notified, orders received for lumbar XR.
[2024-05-16] VITALS: BP 119/76; PULSE 85; RESP 20; O2SAT 94
--- NOTE | 2024-05-16 00:08 | ED.GENADULT ---
HPI - General Adult General Chief complaint: Trauma Stated complaint: fall on thinners Time Seen by Provider: 05/15/24 22:54 Source: patient and EMS Mode of arrival: EMS History of Present Illness HPI narrative: Patient is a 54-year-old male brought in by EMS in his cervical collar for evaluation of injury that [place] He was admit to drinking alcohol today. Has bruising on his left cheek. Concerned that he did hit his head. Supported that he was on anticoagulation. Is obviously intoxicated. Related Data Previous Rx's Medication Instructions Recorded lorazepam 0.5 mg tablet (Ativan) 0.5 mg PO BIDP PRN #60 tabs 03/14/16 isosorbide mononitrate 30 mg 30 mg PO DAILY #30 tabs 04/13/20 tablet,extended release 24 hr albuterol sulfate 90 mcg/actuation 1 inh inhalation Q4-6H PRN 07/11/20 aerosol inhaler shortness of breath #18 grams benzonatate 100 mg capsule 100 mg PO BEDTIME #20 caps 07/11/20 dexamethasone 4 mg tablet 8 mg (2 x 4 mg) PO DAILY #4 tabs 01/16/21 (Decadron) diazepam 5 mg tablet 5 mg PO BID PRN muscle spasm #10 01/16/21 tabs oxycodone-acetaminophen 5 mg-325 1 tab PO Q6H PRN pain #14 tabs 01/16/21 mg tablet Allergies Allergy/AdvReac Type Severity Reaction Status Date / Time lamotrigine Allergy Intermediate HIVES Verified 07/11/20 13:11 Review of Systems Review of Systems Narrative: See HPI Patient History Medical History Hypothyroidism (acquired) Psoriasis Atrial flutter Hypertension Obesity (BMI 35.0-39.9 without comorbidity) Bipolar 1 disorder, manic, full remission Social History Smoking Status: Never smoker Smoking Status: Never smoker alcohol intake frequency: 3 or more drinks per day Alcohol type: hard liquor Substance Use Type: does not use Exam Initial Vital Signs Initial Vital Signs: Vital Signs Pulse Rate 90 05/15/24 22:55 Blood Pressure 132/88 05/15/24 22:55 Pulse Oximetry 96 05/15/24 22:55 Const General: No ill appearing HENMT Face and sinus: other ( superficial abrasion left cheek) Resp Effort & Inspection: normal respiratory effort Cardio Rate: regular rate Skin Other: superficial abrasion left cheek Neuro Other: patient was able to stand and ambulate Extrem Other: no gross deformities Course Orders Ordered: ED Orders 05/15/24 22:54 CT cervical spine wo con Stat CT facial bones wo con Stat CT head/brain wo con Stat 05/15/24 23:15 XR lumbar spine 2-3V Stat Discontinued Medications Ibuprofen (Ibuprofen 400 Mg Tablet) 400 mg PO NOW ONE Stop: 05/16/24 00:29 Last Admin: 05/16/24 00:36 Dose: 400 mg Documented By: HNG Vital Signs Vital signs: Vital Signs - 8 hr 05/15/24 22:55 05/15/24 22:55 05/15/24 22:56 Temperature 97.9 F Pulse Rate 90 91 H Respiratory Rate 18 Blood Pressure 132/88 132/88 Pulse Oximetry 96 96 Oxygen Delivery Method Room Air 05/15/24 23:00 05/15/24 23:00 05/15/24 23:33 Temperature Pulse Rate 92 H 91 H Respiratory Rate 19 Blood Pressure 133/85 Pulse Oximetry 97 95 Oxygen Delivery Method 05/15/24 23:35 05/15/24 23:35 05/16/24 00:00 Temperature Pulse Rate 89 85 Respiratory Rate 14 20 Blood Pressure 159/84 H Pulse Oximetry 96 94 Oxygen Delivery Method 05/16/24 00:00 Temperature Pulse Rate Respiratory Rate Blood Pressure 119/76 Pulse Oximetry Oxygen Delivery Method Medical Decision Making Imaging Data Lumbar spine x-ray: Radiologist's Impression: PROCEDURE: XR LUMBAR SPINE 2-3V INDICATIONS: lower back pain after fall TECHNIQUE: 3 views of the lumbar spine were acquired. COMPARISON: None. FINDINGS: Bones: 5 [id number] vertebrae are present. There is normal bony alignment. No vertebral body compression fractures. No suspicious bony lesions. Soft tissues: Overlying bowel gas pattern is normal. No suspicious soft tissue calcifications. IMPRESSION: No visualized acute fracture or dislocation. However, if clinical concern and/or pain persist, short interval imaging followup in 7-10 days is recommended, as occult injury cannot be definitively excluded. CT scan - head: Radiologist's Impression: PROCEDURE: CT HEAD/BRAIN WO CON INDICATIONS: Fallen on blood thinners TECHNIQUE: Noncontrast 4.5 mm thick angled axial sections acquired from the foramen magnum to the vertex, with coronal and sagittal reformats. For radiation dose reduction, the following was used: automated exposure control, adjustment of mA and/or kV according to patient size. COMPARISON: [facility], CT, CT ANGIO HEAD AND NECK, 01/28/2022, 17:28. FINDINGS: Image quality: Diagnostic. CSF spaces: Basal cisterns are patent. No extra-axial fluid collections. Ventricles are normal in size and shape. Brain: No midline shift. No intracranial masses or hemorrhage. Greer-white matter interface is normal. Skull and face: Calvarium and visualized facial bones are intact, without suspicious lesions. Sinuses: Visualized sinuses demonstrate scattered mild mucosal thickening. IMPRESSION: No acute intracranial pathology. CT - cervical spine: Radiologist's Impression: ADDENDUMThis report includes an Addendum and supersedes previous reports for this exam. PROCEDURE: CT CERVICAL SPINE WO CON INDICATIONS: fall on blood thinners TECHNIQUE: Noncontrast 3 mm thick sections acquired from the skull base to the T4 level. Sagittal and coronal reformats were then constructed. For radiation dose reduction, the following was used: automated exposure control, adjustment of mA and/or kV according to patient size. COMPARISON: None. FINDINGS: Image quality: Prominent motion was present throughout the exam limiting evaluation. Bones: No gross fractures or dislocations. Significant motion is present particularly at the level of C5-6. This area is incompletely evaluated secondary to motion. Soft tissues: Prevertebral soft tissues are normal in thickness. No paravertebral hematomas. No apical pneumothoraces. IMPRESSION: No gross fracture. However, motion is present throughout the exam limiting areas of evaluation. The levels of C5-6 are felt to be inadequately evaluated and fracture wall not grossly visible cannot be excluded. As clinically indicated, repeat images through this level is recommended. Dictated by: Dolly Zurita M.D. on 05/16/2024 at 0:05 Approved by: Dolly Zurita M.D. on 05/16/2024 at 0:09 ADDENDUM: New images were acquired. Level of C5-6 is intact without fracture. Dictated by: Dolly Zurita M.D. on 05/16/2024 at 0:50 Approved by: Dolly Zurita M.D. on 05/16/2024 at 0:51 Addendum Dictated By: Dolly Zurita MD Addendum Signed By: 05/16/2450 Addendum Cosigned By: DD/ TD/TT: 05/16/24 PROCEDURE: CT CERVICAL SPINE WO CON INDICATIONS: fall on blood thinners TECHNIQUE: Noncontrast 3 mm thick sections acquired from the skull base to the T4 level. Sagittal and coronal reformats were then constructed. For radiation dose reduction, the following was used: automated exposure control, adjustment of mA and/or kV according to patient size. COMPARISON: None. FINDINGS: Image quality: Prominent motion was present throughout the exam limiting evaluation. Bones: No gross fractures or dislocations. Significant motion is present particularly at the level of C5-6. This area is incompletely evaluated secondary to motion. Soft tissues: Prevertebral soft tissues are normal in thickness. No paravertebral hematomas. No apical pneumothoraces. IMPRESSION: No gross fracture. However, motion is present throughout the exam limiting areas of evaluation. The levels of C5-6 are felt to be inadequately evaluated and fracture wall not grossly visible cannot be excluded. As clinically indicated, repeat images through this level is recommended. CT fac: Radiologist's Impression: PROCEDURE: CT FACIAL BONES WO CON INDICATIONS: fall on blood thinners TECHNIQUE: Noncontrast 2.5 mm thick axial images acquired from the mandible through the frontal sinuses, with coronal and sagittal reformatting. For radiation dose reduction, the following was used: automated exposure control, adjustment of mA and/or kV according to patient size. COMPARISON: None. FINDINGS: Image quality: Excellent. Bones and teeth: Orbital smith are intact. Sinus smith show no fracture or deformity. Nasal bones and septum are intact. Visualized portions of the mandible demonstrate no fractures or subluxation. Zygomatic arches are intact. Pterygoid plates are intact. Visualized portions of the skull base and auditory canals are intact. Sinuses: Paranasal sinuses demonstrate mild scattered areas of mucosal thickening.. Mastoid air cells are aerated. Soft tissues: No edema, masses, or fluid collections. No enlarged lymph nodes. No soft tissue lacerations or debris. Vascular: Visualized vascular structures appear normal in the absence of contrast. Bony vascular foramina and canals are intact. IMPRESSION: No visualized fracture. MDM Narrative Medical decision making narrative: CT scan show no acute pathology. Initial CT scan of the cervical spine had motion artifact. Patient was taken back for repeat scan. No acute fractures were identified. Superficial abrasion needs no specific intervention here in the ER. Patient is obviously intoxicated. He was able to stand at bedside. No gross deformities of his extremities. Discharge Plan Departure Patient Disposition: Home Clinical Impression: Alcohol intoxication Activity Restrictions/Additional Instructions: no driving for the next 24 hours or in the future if you drink alcohol. Continue to take all of your medications as directed. Contact your primary doctor for a follow-up. Prescriptions: No Action albuterol sulfate 90 mcg/actuation HFA aerosol inhaler 1 inh inhalation Q4-6H PRN (Reason: shortness of breath) Qty: 18 0RF benzonatate 100 mg capsule 100 mg PO BEDTIME Qty: 20 0RF lorazepam [Ativan] 0.5 MG tablet 0.5 mg PO BIDP PRNQty: 60 5RF isosorbide mononitrate 30 mg tablet extended release 24 hr 30 mg PO DAILY Qty: 30 0RF oxycodone-acetaminophen 5-325 mg tablet 1 tab PO Q6H PRN (Reason: pain) Qty: 14 0RF diazepam 5 mg tablet 5 mg PO BID PRN (Reason: muscle spasm) Qty: 10 0RF dexamethasone [Decadron] 4 mg tablet 8 mg PO DAILY Qty: 4 0RF Referrals: Marvin Wyatt MD [Primary Care Provider] - Stand Alone Forms: Patient Portal/API/Survey
[2024-05-16 00:30] VITALS: BP 121/76; PULSE 87; RESP 22; O2SAT 95
[2024-05-16] MEDS: IBUPROFEN 400 MG TABLET PO (00:36)
[2024-05-16 01:00] VITALS: BP 118/84; O2SAT 94
== END 2024-05-16 01:30 | disposition home or self-care (01) ==
PROVIDERS: Emergency Provider Emergency Medicine; PCP Internal Medicine
DX: S09.90XA Unspecified injury of head, initial encounter (principal); W18.30XA Fall on same level, unspecified, initial encounter; F10.129 Alcohol abuse with intoxication, unspecified; M54.50 Low back pain, unspecified; Z79.01 Long term (current) use of anticoagulants; S00.81XA Abrasion of other part of head, initial encounter
CPT/HCPCS: 70450; 70486; 72100; 72125; 99284; 99285; 99291; 99292

== ENCOUNTER → 2025-05-21 12:25 | Outpatient (CLI) | payer OTHER, SELFPAY ==
[2025-05-21 13:09] LABS: Add Manual Diff / Slide Review NO; Hematocrit 42.0 % (41-53); Hemoglobin 14.5 g/dL (13.5-17.5); Lymphocytes Absolute Auto 1400 /uL (1100-4500); Mean Corpuscular HGB Conc 34.5 % (30-36); Mean Corpuscular Hemoglobin 31.8 PG (26-34); Mean Corpuscular Volume 92.3 fL (80-100); Platelet Count 245 X10^3/uL (150-400)
[2025-05-21 13:39] LABS: Blood Urea Nitrogen 17 mg/dL (9-20); Calcium 9.5 mg/dL (8.4-10.2); Carbon Dioxide 25 mmol/L (22-32); Chloride 105 mmol/L (98-107); Cholesterol 181 mg/dL (140-199); Estimated Glomerular Filt Rate > 60 mL/min (>60); Glucose 113 mg/dL (70-99); HDL Cholesterol 43 mg/dL (40-60); HEMOLYSIS < 15 (0-50); Potassium 4.4 mmol/L (3.4-5.1); Sodium 141 mmol/L (137-145); Triglycerides 194 mg/dL (35-150)
[2025-05-21 14:09] LABS: Prostate Specific Antigen 0.353 ng/mL (0.10-4.00)
== END ==
PROVIDERS: PCP Internal Medicine; Referring Provider Internal Medicine; Visit Provider Physician Assistant Medical
DX: Z12.5 Encounter for screening for malignant neoplasm of prostate (principal); E29.1 Testicular hypofunction; I47.19 Other supraventricular tachycardia
CPT/HCPCS: 36415; 80048; 80061; 84153; 84402; 84403; 85025

== ENCOUNTER 2025-06-12 16:32 | Emergency (ER) | payer OTHER, SELFPAY ==
[2025-06-12] VITALS (10 sets, daily range): BP systolic 110–128; BP diastolic 71–85; PULSE 60–72; RESP 16–21; TEMP 36.6; O2SAT 93–97; BMI 33.0
--- OUTSIDE RECORDS SUMMARY | 2025-06-12 16:34 | XMS_ITS | Clinical Summary ---
Author Organization [facility] Address [facility] [place] [address] Care Team Providers Care Mercerizer Name Role Phone Selected, No Pcp Primary Care Provider Unavailab le Social History Tobacco Use Types Packs/Day Years Used Date Smoking Tobacco: Never Assessed Sex and Gender Information Value Date Recorded Sex Assigned at Not on file Legal Sex Male 6:35 PM PDT Gender Identity Not on file Sexual Orientation Not on file Last Filed Vital Signs Vital Sign Reading Time Taken Comments Blood Pressure 124/75 12/13/2019 9:04 AM PDT Pulse 82 12/13/2019 9:04 AM PDT Temperature 36.6 C (97.8 F) 12/13/2019 9:04 AM PDT Respiratory Rate 20 12/13/2019 9:04 AM PDT Oxygen Saturation 97% 12/13/2019 9:04 AM PDT Inhaled Oxygen Concentration - - Weight 97.5 kg (215 lb) 12/13/2019 9:04 AM PDT Height - - Body Mass Index - - Plan of Treatment Not on file Insurance [employer] Care Teams Mercerizer Relationship Specialty Start Date End Date Selected, No Pcp PCP - General PCP 12/13/19
--- NOTE | 2025-06-12 16:42 | EKG_ITS ---
[address] [address] Test Date: 2025-06-12 Pat Name: Raffaele Pickett Department: [facility] Room: Gender: Male Chair Upholsterer: ELADIO : 1970 Requested By: Order Number: [id number] Reading MD: Rashaad March Measurements Intervals [place] Rate: 61 P: 22 [place]: 148 QRS: 21 QRSD: 94 T: 31 QT: 408 QTc: 410 Interpretive Statements Normal sinus rhythm Electronically Signed On 06-15-2025 10:18:56 PST by Rashaad March
--- NOTE | 2025-06-12 16:42 | DI.RAD.S_ITS ---
PROCEDURE: XR CHEST 1V INDICATIONS: Chest Pain TECHNIQUE: One view of the chest was acquired. COMPARISON: [facility], CR, XR CHEST 1V, 04/13/2020, 13:21. FINDINGS: Surgical changes and devices: 2 lead cardiac pacemaker.. Lungs and pleura: Lungs are clear. No pleural effusions or pneumothorax. Mediastinum: Mediastinal contours appear normal. Heart size is normal. Bones and chest wall: No suspicious bony lesions. Overlying soft tissues appear unremarkable. IMPRESSION: No acute cardiopulmonary abnormality is seen. Dictated by: Garth Pierce M.D. on 06/12/2025 at 17:12 Approved by: Garth Pierce M.D. on 06/12/2025 at 17:13
[2025-06-12 17:10] LABS: INR 1.2 (0.9-1.3); Prothrombin Time 13.7 SECONDS (9.4-12.5)
[2025-06-12 17:12] LABS: PTT Partial Thromboplastin Tim 29 SECONDS (25.1-36.5)
[2025-06-12 17:14] LABS: Alanine Aminotransferase 30 IU/L (<50); Albumin 4.9 g/dL (3.5-5.0); Albumin Globulin Ratio 1.5 (1.0-2.8); Alkaline Phosphatase 53 U/L (38-126); Blood Urea Nitrogen 11 mg/dL (9-20); Calcium 9.5 mg/dL (8.4-10.2); Carbon Dioxide 23 mmol/L (22-32); Chloride 106 mmol/L (98-107); Creatine Kinase 140 U/L (55-170); Estimated Glomerular Filt Rate > 60 mL/min (>60); Globulin 3.2 g/dL (1.7-4.1); Glucose 104 mg/dL (70-99); HEMOLYSIS < 15 (0-50); Lipase 150 U/L (23-300); Magnesium 1.6 mg/dL (1.6-2.3); Potassium 4.0 mmol/L (3.4-5.1); Sodium 140 mmol/L (137-145); Total Protein 8.1 g/dL (6.3-8.2)
[2025-06-12 17:26] LABS: NT-proBNP (BNP-Adult 18+) < 20 pg/mL (<125); Troponin I < 0.012 ng/mL (0.01-0.034)
[2025-06-12 17:34] LABS: Add Manual Diff / Slide Review NO; Hematocrit 40.6 % (41-53); Hemoglobin 14.2 g/dL (13.5-17.5); Lymphocytes Absolute Auto 1600 /uL (1100-4500); Mean Corpuscular HGB Conc 34.9 % (30-36); Mean Corpuscular Hemoglobin 32.1 PG (26-34); Mean Corpuscular Volume 92.1 fL (80-100); Platelet Count 232 X10^3/uL (150-400)
--- NOTE | 2025-06-12 18:25 | PC.NURSE ---
This RN interrogates patients Med pacemaker at approximately 1818. No report/fax has been received by this facility. This RN calls Med Technical support at and speaks to Hugo who states he will have the rep call us back. If they do not call within 40 minutes then to call back. insurance examiner Falon made aware.
--- NOTE | 2025-06-12 18:52 | ED_ITS ---
HPI - Chest Pain General Chief Complaint: Chest Pain Stated Complaint: Heart ablation few weeks ago, fatigue, heart flutt Time Seen by Provider: 06/12/25 18:04 Source: patient Mode of arrival: Ambulatory Limitations: no limitations History of Present Illness HPI narrative: 55-year-old gentleman with his 2nd cardiac ablation at [facility] on May 25, had a pacemaker in 2018. With this current 2nd ablation he is feeling more fatigued generally worse which is not his experience with the 1st ablation. He has noted a couple episodes of palpitation, no overt chest pain, notices significantly more fatigue. No fevers cough or chills no nausea vomiting or diarrhea Related Data Previous Rx's ?Medication ?Instructions ?Recorded lorazepam 0.5 mg tablet (Ativan) 0.5 mg PO BIDP PRN #6 0 tabs 03/14/16 isosorbide mononitrate 30 mg 30 mg PO DAILY #30 tabs 1 tablet,extended release 24 hr albuterol sulfate 90 mcg/actuation 1 inh inhalation Q4 -6H PRN 07/11/20 aerosol inhaler shortness of breath #18 gram s benzonatate 100 mg capsule 100 mg PO BEDTIME #20 caps 07/11/20 dexamethasone 4 mg tablet 8 mg (2 x 4 mg) PO DAILY #4 tabs 01/16/21 (Decadron) diazepam 5 mg tablet 5 mg PO BID PRN muscle spasm #10 01/16/21 tabs oxycodone-acetaminophen 5 mg-325 1 tab PO Q6H PRN pain #14 tabs 01/16/21 mg tablet Allergies Allergy/AdvReac Type Severity Reaction Status Date / Time lamotrigine Allergy Intermediate HIVES Verified 07/11/20 13:11 Review of Systems Review of Systems Narrative: Pertinent positive and negative findings as per HPI Patient History Medical History Hypothyroidism (acquired) Psoriasis Atrial flutter Hypertension Obesity (BMI 35.0-39.9 without comorbidity) Bipolar 1 disorder, manic, full remission Social History Smoking Status: Never smoker Smoking Status: Never smoker alcohol intake frequency: 3 or more drinks per day Alcohol type: hard liquor Exam Initial Vital Signs Initial Vital Signs: Vital Signs Temperature 98 F 12/26/25 16:35 Pulse Rate 72 06/12/25 16:35 Respiratory Rate 16 06/12/25 16:35 Blood Pressure 128/85 06/12/25 16:35 Pulse Oximetry 96 06/12/25 16:35 Oxygen Delivery Method Room Air 06/12/25 16:35 General: Slightly pale but in no acute distress. Able to give a complete and coherent history. Well-nourished well-developed HEENT: Moist mucous membranes, normal sclera with reactive pupils, Neck: No JVD, Respiratory: Lungs are clear to auscultation, no wheezing no rales no rhonchi. Full and symmetrical air movement Cardiac: Regular rate and rhythm no murmurs no bruits Abdomen: Soft, nontender, no rebound or guarding, no flank pain Skin: Warm and dry, no rashes Neurologic: Grossly neurologically intact with no obvious asymmetries or abnormalities Extremities: No trauma, well perfused Psych: Cooperative, appropriate insight and affect Bedside ultrasound shows no evidence of pericardial effusion Course Orders Ordered: ED Orders 06/12/25 16:42 XR chest 1V Stat EKG-12 Lead Stat 06/12/25 16:50 Complete Blood Count AUTO DIFF Stat Comprehensive Metabolic Panel Stat Lipase Stat Magnesium Stat NT-proBNP (BNP-Adult 18+) Stat PTT Partial Thromboplastin Saul Stat Prothrombin Time INR Stat Troponin & CK Cardiac Panel Stat 06/12/25 18:50 Trop I [Troponin I] Stat EKG-12 Lead Stat Discontinued Medications Aspirin (Aspirin 81 Mg Chew Tab) 324 mg PO NOW ONE Stop: 06/12/25 16:43 Last Admin: 06/12/25 17:44 Dose: Not Given Documented By: [facility] Vital Signs Vital signs: Vital Signs - 8 hr 06/12/25 16:35 Temperature 98 F Pulse Rate 72 Respiratory Rate 16 Blood Pressure 128/85 Pulse Oximetry 96 Oxygen Delivery Method Room Air MDM - Chest Pain Lab Data 06/12/25 16:50 06/12/25 16:50 Labs: Lab Results 06/12/25 Range/Units 16:50 WBC 4.7 (4.5-11.0) X10^3/uL RBC 4.41 L (4.5-5.9) X10^6/uL Hgb 14.2 (13.5-17.5) g/dL Hct 40.6 L (41-53) % MCV 92.1 (80-100) fL MCH 32.1 (26-34) PG MCHC 34.9 (30-36) % RDW 14.0 (11.6-14.8) % Plt Count 232 (150-400) X10^3/uL Neut % (Auto) 59.3 (50-75) % Lymph % (Auto) 34.0 (25-40) % Rains % (Auto) 5.8 (3-14) % Eos % (Auto) 0.6 L (2-4) % Baso % (Auto) 0.3 (0-2) % Neut # (Auto) 2800 (2915-3693) /uL Lymph # (Auto) 1600 (5082-9243) /uL Rains # (Auto) 300 (0-900) /uL Eos # (Auto) 0 (0-450) /uL Baso # (Auto) 0 (0-100) /uL PT 13.7 H (9.4-12.5) SECONDS INR 1.2 (0.9-1.3) APTT 29 (25.1-36.5) SECONDS Sodium 140 (137-145) mmol/L Potassium 4.0 (3.4-5.1) mmol/L Chloride 106 (98-107) mmol/L Carbon Dioxide 23 (22-32) mmol/L BUN 11 (9-20) mg/dL Creatinine 0.86 (0.66-1.25) mg/dL Estimated GFR > 60 (>60) mL/min BUN/Creatinine Ratio 12.8 (6-22) Glucose 104 H (70-99) mg/dL Calcium 9.5 (8.4-10.2) mg/dL Magnesium 1.6 (1.6-2.3) mg/dL Total Bilirubin 0.6 (0.2-1.3) mg/dL AST 29 (17-59) IU/L ALT 30 (<50) IU/L Alkaline Phosphatase 53 (38-126) U/L Total Creatine Kinase 140 (55-170) U/L Troponin I < 0.012 (0.01-0.034) ng/mL NT-Pro-B Natriuret Pep < 20 (<125) pg/mL Total Protein 8.1 (6.3-8.2) g/dL Albumin 4.9 (3.5-5.0) g/dL Globulin 3.2 (1.7-4.1) g/dL Albumin/Globulin Ratio 1.5 (1.0-2.8) Lipase 150 (23-300) U/L MDM Narrative Medical decision making narrative: CC: Fatigue and palpitations Complicating co-morbidities: Cardiac ablation on May 25 Data collected from: patient, Differential considered: Paroxysmal AFib, pericardial effusion, acute coronary syndrome, viral etiology, anemia, postsurgical recovery Exam documented above, pertinent findings include: Side from appearing fatigued exam is entirely reassuring. Bedside ultrasound confirms absence of pericardial effusion Lab Test results independently reviewed as above. Pertinent findings: CBC is unremarkable with no white blood cell count elevation and no anemia Chemistries are reassuring no electrolyte abnormalities 1st and 2nd troponins are undetectable ProBNP is undetectable Lipase is normal Independently reviewed EKG: EKG shows atrial paced rhythm at a rate of 60 Pacemaker interrogation shows 2 episodes of SVT 1 on June 11 1 on May 20 each last less than 2 seconds, no ventricular tachycardia recorded Imaging studies independently reviewed: Chest x-ray is unremarkable, no heart failure no obvious cardiomegaly Discussion: 55-year-old gentleman 15 days post cardiac ablation still generally feeling unwell. Comparison to his 1st ablation in which he felt better the next day he is concerned that there may be some complications. Blood work is reassuring, no evidence of infection, acute coronary syndrome, pericardial effusion, persistent rhythm abnormalities or further issues that would require admission or further imaging. He has an appointment with his gear cutting machine operator in [address] Gambino, his motion pictures cartoonist was initiated to let him know that the patient was in the emergency department. All findings and questions were reviewed patient is safely discharge Discharge Plan Departure Patient Disposition: Home Clinical Impression: Fatigue, Palpitations Activity Restrictions/Additional Instructions: Thank you for coming in today Your workup today was very reassuring. There was no evidence of bacterial infection, anemia, acute coronary syndrome, your pacemaker appears to be working perfectly. Pacemaker interrogation did show an episode of supraventricular tachycardia on at 6:07 p.m. and on June 09 at 3:42 a.m. in the morning. Both of these episodes lasted less than 2 seconds. We did a quick ultrasound in the emergency department there is not extra fluid that is gathering around your heart, a pericardial effusion. You are chest x- ray was nice and normal with no sign of heart failure and an appropriately shaped and sized heart. I do not have a full explanation for why this recovery seems to be taking longer than your 1st ablation. Still seems like it is with in expected recovery ranges. I did send a note to Dr. Gambino to let him know that you are in the emergency department. Please keep your cardiology follow up appointment this Sunday If you find that you are getting worse or develop any new symptoms, please feel free to return to the emergency department for further evaluation. Prescriptions: No Action albuterol sulfate 90 mcg/actuation HFA aerosol inhaler 1 inh inhalation Q4-6H PRN (Reason: shortness of breath) Qty: 18 0RF benzonatate 100 mg capsule 100 mg PO BEDTIME Qty: 20 0RF lorazepam [Ativan] 0.5 MG tablet 0.5 mg PO BIDP PRNQty: 60 5RF isosorbide mononitrate 30 mg tablet extended release 24 hr 30 mg PO DAILY Qty: 30 0RF oxycodone-acetaminophen 5-325 mg tablet 1 tab PO Q6H PRN (Reason: pain) Qty: 14 0RF diazepam 5 mg tablet 5 mg PO BID PRN (Reason: muscle spasm) Qty: 10 0RF dexamethasone [Decadron] 4 mg tablet 8 mg PO DAILY Qty: 4 0RF Referrals: Marvin Wyatt MD [Primary Care Provider, Internal Medicine] Stand Alone Forms: Patient Portal/API
--- NOTE | 2025-06-12 19:00 | PC.NURSE ---
This RN receives a callback from Fany at [facility] technical support. She helps troubleshoot the interrogation device. Interrogation is successful. She reports Normal function, dual pacemaker, wires look good, a 4.3 year battery life left. She also reports 2 high atrial rate episodes. Yesterday, for 2 seconds @ 6:07pm with 1:1 SVT at rate of 170 beats per minute and the other episode on for one second 1:1 SVT rate of 175 beats per minute at 3:42am. manufacturing leader made aware. Provider Kayla to be given fax print out and made aware.
--- NOTE | 2025-06-12 19:37 | EKG_ITS ---
[address] [address] [address], [place] [address] Test Date: 2025-06-12 Pat Name: Raffaele Pickett Department: Room: Gender: Male Research Director: MARIEL : 1970 Requested By: Order Number: [id number] Reading MD: Rashaad March Measurements Intervals [place] Rate: 60 P: 118 [place]: 172 QRS: 23 QRSD: 98 T: 27 QT: 402 QTc: 402 Interpretive Statements Atrial-paced rhythm Electronically Signed On 06-15-2025 10:19:28 PST by Rashaad March
[2025-06-12 19:45] LABS: Troponin I < 0.012 ng/mL (0.01-0.034)
== END 2025-06-12 23:10 | disposition home or self-care (01) ==
PROVIDERS: Family Medicine; Emergency Provider Emergency Medicine; PCP Internal Medicine
DX: R00.2 Palpitations (principal); R53.83 Other fatigue; I10 Essential (primary) hypertension
CPT/HCPCS: 36415; 71045; 80053; 82550; 83690; 83735; 83880; 84484; 85025; 85610; 85730; 93005; 99283; 99284